=== PATIENT | female | born 1990 | race Caucasian/White ===

== ENCOUNTER 2017-11-25 04:43 | Emergency (ER) | payer OTHER ==
--- NOTE | 2017-11-25 05:19 | PD ---
HPI Chief Complaint Contractions Date Seen: Nov 25, 2017 Time Seen: 05:12 Travel History International Travel<30 Days: No Contact w/Intl Traveler<30Days: No Known Affected Area: No History of Present Illness HPI Patient is 27-year-old white female at 39 weeks goes to the [facility] pt c/o CTXs since 1 am [4 hrs ago] no bleeding or SROM , FHR reactive Weeks Gestation: 39 Para: 0 : 1 History Social History Alcohol Use: No Tobacco Use: No Substance Abuse: No Review of Systems General / Constitutional: No: Fever, Weight Gain, Chills, Other Eyes: No: Diploplia, Blurred Vision, Visual changes, Pain, Photophobia HENT: No: Headaches, Vertigo, Lightheadedness Cardiovascular: No: Irregular Rhythm, Chest Pain or Discomfort, Palpitations, Tachycardia, Syncope, Varicosities, Edema, Cyanosis Respiratory: No: Cough, Short of Breath, Other Gastrointestinal: Abdominal Pain, No: Nausea, Vomiting, Diarrhea Genitourinary: No: Decreased Urinary Output, Oliguria Musculoskeletal: No: Limited ROM, Weakness, Cramping, Edema, Pain Skin: No Rash, No Itching, No Dryness, No Lumps, No Change in Pigmentation, No Change in Nails, No Alopecia, No Lesions Neurologic: No: Weakness, Dizziness, Syncope, Focal Abnormalities, Coordination Problem, Headache, Slurred Speech, Seizures Psychiatric: No: Depression, Suicidal Ideations, Homicidal Ideation Endocrine: No: Heat Intolerance, Cold Intolerance, Polydipsia, Polyuria, Other Physical Exam Narrative GENERAL: Well-nourished, well-developed patient. SKIN: Warm and dry. HEAD: Normocephalic and atraumatic. EYES: No scleral icterus. No injection or drainage. ENT: No nasal drainage noted. Mucous membranes pink. Airway patent. NECK: Supple, trachea midline. No JVD. CARDIOVASCULAR: Regular rate and rhythm without murmurs, gallops, or rubs. RESPIRATORY: Breath sounds equal bilaterally. No accessory muscle use. BREASTS: Bilateral exam showed no masses , no retractions, no nipple discharge. ABDOMEN/GI: Abdomen soft, non-tender, bowel sounds present, no rebound, no guarding Gravid to [39-] weeks size Fundal Height: [-39] GENITOURINARY: External Genitalia: intact and normal in appearance BUS glands: [-] Cervix: [post-] Dilatation: [-2] Effacement: [-60] Station: [-3] Presentation: [vtx-] Membranes: [intact ] Uterine Contractions: [q 5 min-] FHT's: Category: [-1] Baseline: [-133] Reactive: [R-] Variability: [mod-] Decels: [none-] EXTREMITIES: No cyanosis or edema. BACK: Nontender without obvious deformity. No CVA tenderness. NEUROLOGICAL: Awake and alert. Motor and sensory grossly within normal limits. Five out of 5 muscle strength in all muscle groups. Normal speech. MDM Interpretation(s) Pt is a 27 y/o WF at39 wks C/o CTXs , cx 2/60/-3 FHR reactive , CTXs q 5 min Plan Plan to D/C home , return for increase labor pain, SROM ,or Bleeding Diagnosis Diagnosis: Primary Impression: Uterine contractions during Additional Impression: 39 weeks gestation of Disposition: DISCHARGE HOME Condition: Stable Ji Cedillo II, MD Nov 25, 2017 05:18
[2017-11-26] MEDS ORDERED: IBUP1TAB7 PO (17:13)
== END 2017-11-25 05:29 | disposition home or self-care (01) ==
LOC: HOBED 04:43
DX: O62.9 Abnormality of forces of labor, unspecified (principal); Z3A.39 39 weeks gestation of pregnancy
CPT/HCPCS: 59025

== ENCOUNTER 2017-11-25 18:43 | Inpatient (IN) | payer OTHER ==
[~2017-11-25] VITALS: Ht 154.9 cm; Wt 61.3 kg
[2017-11-25] VITALS (10 sets, daily range): BP systolic 132–142; BP diastolic 70–78; PULSE 72–80; RESP 18; TEMP 97.7–97.8; O2SAT 100
[2017-11-25] MEDS ORDERED: LACTATED RINGER'S 1000 ML INJ 1,000 ML IV SCH (19:14)
[2017-11-25] MEDS ORDERED: LACTATED RINGER'S 1000 ML INJ 1,000 ML IV PRN (19:14)
[2017-11-25] MEDS ORDERED: SODIUM CHLORID 0.9% 500 ML INJ 500 ML IV PRN (19:15)
[2017-11-25] MEDS ORDERED: LIDOCAINE HCL 1% 50 ML VIAL I-DERMAL PRN (19:15)
[2017-11-25] MEDS ORDERED: OXYTOCIN 30 UNITS-500ML PREMIX 500 ML IV ONE (19:15)
[2017-11-25] MEDS ORDERED: MINERAL OIL 10 ML VIAL TOPICAL PRN (19:15)
[2017-11-25] MEDS ORDERED: CITRIC ACID-SODIUM CITRATE LIQ 30 ML UDC PO SCH (19:15)
[2017-11-25] MEDS ORDERED: ONDANSETRON HCL 4 MG/2 ML VIAL IV PUSH PRN (19:15)
[2017-11-25] MEDS ORDERED: LIDOCAINE HCL 1% 50 ML VIAL INFIL PRN (19:15)
--- NOTE | 2017-11-25 19:23 | HHI.HP ---
History & Physical H&P HPI Chief Complaint contractions Date Seen: Nov 25, 2017 Time Seen: 19:16 Travel History International Travel<30 Days: No Contact w/Intl Traveler<30Days: No Known Affected Area: No History of Present Illness HPI pt. is a 27 y/o @ 39 4/7 weeks present w/ c/o ctxs. pt. states been having ctxs since early in am. was seen in [place] and d/c. pt. states since ctxs have increased in freq and intensity. +FM, no lof/vb. cervix at present 5cm/80/0/ant w/ bulging membranes. Weeks Gestation: 39 Para: 0 : 1 History (Limited) History Past Medical History Medical History: Denies Significant Hx Obstetric History Obstetric History Past Surgical History Surgical History: No Previous Surgery Family History Family History: Negative Social History Alcohol Use: No Tobacco Use: No Substance Abuse: No Allergies-Medications Allergies-Medications (Allergen,Severity, Reaction): Coded Allergies: prochlorperazine (Verified Allergy, Mild, Rash, 11/25/17) ROS Review of Systems Except as stated in HPI: all other systems reviewed are Neg Physical Exam Physical Exam Narrative GENERAL: Well-nourished, well-developed patient. SKIN: Warm and dry. HEAD: Normocephalic and atraumatic. EYES: No scleral icterus. No injection or drainage. ENT: No nasal drainage noted. Mucous membranes pink. Airway patent. NECK: Supple, trachea midline. No JVD. CARDIOVASCULAR: Regular rate and rhythm without murmurs, gallops, or rubs. RESPIRATORY: Breath sounds equal bilaterally. No accessory muscle use. BREASTS: Bilateral exam showed no masses , no retractions, no nipple discharge. ABDOMEN/GI: Abdomen soft, non-tender, bowel sounds present, no rebound, no guarding Gravid GENITOURINARY: External Genitalia: intact and normal in appearance Dilatation: 5 Effacement:80 Station: Membranes: bulging Uterine Contractions: q2-3 min FHT's: Category: 1 Reactive: + Variability: mod EXTREMITIES: No cyanosis or edema. BACK: Nontender without obvious deformity. No CVA tenderness. NEUROLOGICAL: Awake and alert. Motor and sensory grossly within normal limits. Five out of 5 muscle strength in all muscle groups. Normal speech. Data Data Data Vital Signs Reviewed: Yes Orders Orders Ob (2e) Additional Admit Info (11/25/17 19:05) Admit To Inpatient (11/25/17 ) Code Status (11/25/17 19:14) Vital Signs (Adult) .Per protocol (11/25/17 19:14) Activity Oob Ad Liliana (11/25/17 19:14) Heart (11/25/17 19:14) Amnioinfusion (11/25/17 19:14) Urinary Catheter Management .ONCE (11/25/17 19:14) Diet Liquid (11/26/17 Breakfast) Lactated Ringer's 1000 Ml Inj (Lr 1000 M (11/25/17 19:14) Lactated Ringer's 1000 Ml Inj (Lr 1000 M (11/25/17 19:14) Sodium Chlorid 0.9% 500 Ml Inj (Ns 500 M (11/25/17 19:15) Sodium Chlor 0.9% 1000 Ml Inj (Ns 1000 M (11/25/17 19:34) Lidocaine 1% Inj (50 Ml) (Xylocaine 1% I (11/25/17 19:15) Citric Acid-Sodium Citrate Liq (Bicitra (11/25/17 19:15) Ondansetron Inj (Zofran Inj) (11/25/17 19:15) Fentanyl Inj (Fentanyl Inj) (11/25/17 19:15) Fentanyl Inj (Fentanyl Inj) (11/25/17 19:15) Complete Blood Count With Diff (11/25/17 19:14) Hold Clot (11/25/17 19:14) Abo/Rh Blood Type (11/25/17 19:14) Urinalysis - C+S If Indicated (11/25/17 19:14) Drug Screen, Random Urine (11/25/17 19:14) Ob/Psych Drug Screen, Urine (11/25/17 19:14) Resp Oxygen Non Rebreathe Mask (11/25/17 ) ^ Epidural / Intrathecal Infus (11/25/17 19:14) Oxytocin 30 Units-500ml Premix (Pitocin (11/25/17 19:15) Lidocaine 1% Inj (50 Ml) (Xylocaine 1% I (11/25/17 19:15) Light Mineral Oil (Muri-Lube Oil) (11/25/17 19:15) Inpatient Certification (11/25/17 ) Specimen To Be Collected PRN (11/25/17 19:14) Specimen To Be Collected PRN (11/25/17 19:14) Group B Strep: Negative MDM MDM Medical Record Reviewed: Yes Plan pt. in active labor. fht reassuring. pt. to be admitted. pt. gbs -. fentanyl vs epidural. efm/toco. d/w dr. kennedy. Diagnosis Diagnosis: Primary Impression: Uterine contractions during Additional Impression: 39 weeks gestation of Jorge Landeros Jr., MD Nov 25, 2017 19:23
[2017-11-25] MEDS ORDERED: SODIUM CHLOR 0.9% 1000 ML INJ 1,000 ML IV PRN (19:34)
[2017-11-25 20:41] LABS: AUTOMATED NEUTROPHIL # 9.5 TH/MM3 (1.8-7.7); BASOPHIL # 0.1 TH/MM3 (0-0.2); BASOPHIL % 0.5 % (0.0-2.0); HEMATOCRIT 40.2 % (35.0-46.0); HEMOGLOBIN 13.8 GM/DL (11.6-15.3); LYMPH % 11.7 % (9.0-44.0); LYMPHOCYTE # 1.3 TH/MM3 (1.0-4.8); MEAN CELL VOLUME 89.2 FL (80.0-100.0); MEAN CORPUSCULAR HEMOGLOBIN 30.6 PG (27.0-34.0); MEAN CORPUSCULAR HGB CONC 34.3 % (32.0-36.0); MEAN PLATELET VOLUME 10.3 FL (7.0-11.0); MONO % 5.4 % (0.0-8.0); MONOCYTE # 0.6 TH/MM3 (0-0.9); NEUT % 82.4 % (16.0-70.0); PLATELET COUNT 145 TH/MM3 (150-450); RED BLOOD COUNT 4.51 MIL/MM3 (4.00-5.30); RED CELL DISTRIBUTION WIDTH 14.3 % (11.6-17.2); WHITE BLOOD COUNT 11.6 TH/MM3 (4.0-11.0)
[2017-11-25 20:47] LABS: BACTERIA, URINE RARE /hpf; BILIRUBIN, URINE NEG (NEG); BLOOD, URINE NEG (NEG); GLUCOSE,URINE NEG (NEG); KETONE, URINE 150 mg/dL (NEG); MUCUS URINE FEW /lpf (OCC); NITRITE,URINE NEG (NEG); PH, URINE 6.5 (5.0-8.5); SQUAMOUS EPITHELIAL CELL URINE 6 /hpf (0-5); URINE COLOR YELLOW (YELLW/STRAW); URINE LEUKOCYTE ESTERASE NEG (NEG)
[2017-11-26] VITALS (10 sets, daily range): BP systolic 105–131; BP diastolic 56–73; PULSE 69–131; RESP 16–18; TEMP 97.9–98.4; O2SAT 98
[2017-11-26] MEDS ORDERED: LIDOCAINE HCL 1% PF 30 ML VIAL ONE (00:10)
--- NOTE | 2017-11-26 01:33 | HHI.PR ---
Addendum to Inpatient Note Addendum Reason: Additional Documentation Additional Information Paged by nursing staff at approximately 1300 for patient's refusal of medications. Patient is currently in labor. The parents report they do not wish for a Hep B vaccination, erythromycin application and vitamin K administration. The risks and benefits were reviewed, including but not limited to risks of current or future infection, bleeding, blindness and possibly . They expressed understanding of the risks and benefits of refusing and still wish to refuse at this time. They state they may consider vitamin k upon delivery, however they are currently refusing. It was explained that if they do change their minds all of these are still encouraged and will still be available to them upon delivery. Refusal signed, witnessed by nurse in room. Phillip Damon MD R1 Nov 26, 2017 01:33
--- NOTE | 2017-11-26 04:08 | PD.OB.DELI ---
Weeks gestation: 39 Pt started active labor?: Yes Medical induction of labor?: No Artificial rupture of membrane: No Anesthesia: Lidocaine local to perineum Episiotomy: Midline Vaginal Delivery: Vacuum Presentation: Occiput anterior Nuchal Cord: None Delayed cord clamping (45 sec): Yes Infant: Male Delivery date: Nov 26, 2017 Delivery time: 03:29 One Minute : 6 Five Minute : 8 Weight: 7 lb 11 oz Placenta: Spontaneous delivery Laceration: Episiotomy, 2 deg Repair: Chromic running Estimated blood loss: 200ml Additional Information Terminal bradycardia with pushing efforts. Bradycardia for approx 5 min to 80's ; quick return to baseline followed by repeat bradycardia. Informed patient and of need for operative delivery and possible cd if unsuccessful. Peds and respiratory in room. OR team made aware of possible need for stat cd under general. Lidocaine on perineum for pain control, straight cath of bladder performed. 3+ station in OA position. Vacuum placed at median flexion point, with maternal pushing efforts through one push. Released after contraction. Episiotomy performed. Vacuum applied through another contraction with pop-off x1. Mother continued pushing efforts with that contraction and delivered. Anal sphincter muscles/capsule reinforced with interrupted 2-0 chromic. Multiplayer closure performed with 2-0 chromic. Good hemostasis noted. Counts correct. Family debriefed after delivery. Radha Singh MD Nov 26, 2017 04:08
[2017-11-26] MEDS ORDERED: OXYTOCIN 30 UNITS-500ML PREMIX 500 ML IV SCH (04:15)
[2017-11-26] MEDS ORDERED: ZOLPIDEM TARTRATE 5 MG TAB PO PRN (04:15)
[2017-11-26] MEDS ORDERED: SODIUM CHLORIDE 0.9% FLUSH 10 ML FLUSH IV FLUSH PRN (04:15)
[2017-11-26] MEDS ORDERED: ALUMINUM/MAGNESIUM/SIMETH 30 ML CUP PO PRN (04:15)
[2017-11-26] MEDS ORDERED: oxyCODONE/ACETAMINOPHEN 5 MG/325 MG TAB PO PRN (04:15)
[2017-11-26] MEDS ORDERED: ONDANSETRON ODT 4 MG TAB PO PRN (04:15)
[2017-11-26] MEDS ORDERED: ACETAMINOPHEN 325 MG TAB PO PRN (04:15)
[2017-11-26] MEDS ORDERED: WITCH HAZEL 50%/GLYCERIN 12.5% 40 PAD JAR TOPICAL PRN (04:15)
[2017-11-26] MEDS ORDERED: BENZOCAINE 20% TOPICAL SPRAY 60 ML CAN TOPICAL PRN (04:15)
[2017-11-26] MEDS: IBUPROFEN 800 MG TAB PO PRN ×3 (04:26→21:22)
[2017-11-26] MEDS ORDERED: SODIUM CHLORIDE 0.9% FLUSH 10 ML FLUSH IV FLUSH SCH (09:00)
[2017-11-26] MEDS ORDERED: DIPHTH/TETANUS/ACEL PERTUSSIS (BOOSTER) 0.5 ML VIAL/PFS IM ONE (16:00)
[2017-11-26] MEDS ORDERED: MEASLES, MUMPS, RUBELLA VACCINE 0.5 ML VIAL SQ ONE (16:00)
[2017-11-26] MEDS ORDERED: IBUP1TAB7 PO (17:13)
--- NOTE | 2017-11-26 17:14 | HHI.DCPOC ---
Discharge Care Plan Diagnosis: (1) Status post vacuum-assisted vaginal delivery Your Health Problems Are: Vaginal delivery Report Symptoms to Your Doctor -Temperature above 100.5 degrees -Redness, of incision or excessive or foul smelling drainage -Unusual pain or calf pain -Increased vaginal bleeding -Painful or difficulty urinating -Feelings of extreme sadness or anxiety after 2 weeks Goals to Promote Your Health * To prevent worsening of your condition and complications * To maintain your health at the optimal level Directions to Meet Your Goals Take your medications as prescribed Follow your dietary instruction Follow activity as directed Ensure plenty of rest for recovery Drink fluids for hydration Keep your appointments as scheduled Take your immunizations and boosters as scheduled If your symptoms worsen call your PCP, if no PCP go to Urgent Care Center or Emergency Room Smoking is Dangerous to Your Health. Avoid second hand smoke Call the 24-hour crisis hotline for domestic abuse at Radha Tierney MD Nov 26, 2017 17:14
[2017-11-27] MEDS: IBUPROFEN 800 MG TAB PO PRN ×3 (05:43→21:40)
[2017-11-27 08:00] VITALS: BP 111/76; PULSE 61; RESP 20; TEMP 97.8; O2SAT 97
[2017-11-27] MEDS: DOCUSATE SODIUM 50 MG/SENNA 8.6 MG TAB PO PRN ×2 (09:21→21:40)
--- NOTE | 2017-11-27 11:27 | HHI.OB ---
Subjective Post Day: 1 Remarks doing well no complaints desire circumcision Objective Vitals/I&O Vital Signs Date Time Temp Pulse Resp B/P (MAP) Pulse Ox O2 Delivery O2 Flow Rate FiO2 11/27/17 08:00 97.8 61 20 111/76 (88) 97 11/26/17 20:02 98.2 87 18 114/73 (87) Objective Remarks GENERAL: Well-nourished, well-developed patient. CARDIOVASCULAR: Regular rate and rhythm without murmurs, gallops, or rubs. RESPIRATORY: Breath sounds equal bilaterally. No accessory muscle use. ABDOMEN/GI: Abdomen soft, non-tender. Fundus: Firm, non-tender at umbilicus. GENITOURINARY: Light to moderate bleeding. EXTREMITIES: No cyanosis or edema, non-tender, without signs of DVT. Medications and IVs Current Medications Medications (Trade) Dose Ordered Sig/Zulma Route Start Time Stop Time Status Last Admin (NS Flush) 2 ml BID IV FLUSH 11/26/17 09:00 (NS Flush) 2 ml UNSCH PRN IV FLUSH 11/26/17 04:15 (Tylenol) 650 mg Q4H PRN PO 11/26/17 04:15 11/26/17 14:57 (Motrin) 800 mg Q8H PRN PO 11/26/17 04:15 11/27/17 05:43 (Percocet 5-325 Mg) 1 tab Q4H PRN PO 11/26/17 04:15 (Americaine 20% Top Spr) 1 spray Q4H PRN TOPICAL 11/26/17 04:15 11/26/17 10:05 (Tucks Pads) 1 applic QID PRN TOPICAL 11/26/17 04:15 11/26/17 10:05 (Fina-Colace) 2 tab Q12H PRN PO 11/26/17 04:15 11/27/17 09:21 (Ambien) 5 mg HS PRN PO 11/26/17 04:15 (Mag-Al Plus Susp Liq) 15 ml Q8H PRN PO 11/26/17 04:15 (Zofran Odt) 4 mg Q6H PRN PO 11/26/17 04:15 Assessment/Plan Assessment and Plan doing well PPD 1 will get circumcision today or tomorrow Breanna Sandoval MD Nov 27, 2017 11:27
[2017-11-27 20:00] VITALS: BP 114/73; PULSE 86; RESP 18; TEMP 98.3; O2SAT 97
[2017-11-28] MEDS: IBUPROFEN 800 MG TAB PO PRN ×2 (06:07→15:09)
[2017-11-28 08:00] VITALS: BP_SYST 108; BP_SYST 112; BP_DIAS 69; BP_DIAS 70; PULSE 75; PULSE 91; RESP 18; RESP 20; TEMP 98.1; TEMP 98.2; O2SAT 98
--- NOTE | 2017-11-28 08:12 | HHI.OB ---
Subjective Post Day: 2 Remarks Doing well, meeting milestones, discharge home today, vaginal bleeding less than menses, pain controlled. Objective Vitals/I&O Vital Signs Date Time Temp Pulse Resp B/P (MAP) Pulse Ox O2 Delivery O2 Flow Rate FiO2 11/27/17 20:00 98.3 86 18 114/73 (87) 97 Objective Remarks GENERAL: Well-nourished, well-developed patient. CARDIOVASCULAR: Regular rate and rhythm without murmurs, gallops, or rubs. RESPIRATORY: Breath sounds equal bilaterally. No accessory muscle use. ABDOMEN/GI: Abdomen soft, non-tender. Fundus: Firm, non-tender at umbilicus. GENITOURINARY: Light to moderate bleeding. EXTREMITIES: No cyanosis or edema, non-tender, without signs of DVT. Medications and IVs Current Medications Medications (Trade) Dose Ordered Sig/Zulma Route Start Time Stop Time Status Last Admin (NS Flush) 2 ml BID IV FLUSH 11/26/17 09:00 (NS Flush) 2 ml UNSCH PRN IV FLUSH 11/26/17 04:15 (Tylenol) 650 mg Q4H PRN PO 11/26/17 04:15 11/26/17 14:57 (Motrin) 800 mg Q8H PRN PO 11/26/17 04:15 11/28/17 06:07 (Percocet 5-325 Mg) 1 tab Q4H PRN PO 11/26/17 04:15 (Americaine 20% Top Spr) 1 spray Q4H PRN TOPICAL 11/26/17 04:15 11/26/17 10:05 (Tucks Pads) 1 applic QID PRN TOPICAL 11/26/17 04:15 11/26/17 10:05 (Fina-Colace) 2 tab Q12H PRN PO 11/26/17 04:15 11/27/17 21:40 (Ambien) 5 mg HS PRN PO 11/26/17 04:15 (Mag-Al Plus Susp Liq) 15 ml Q8H PRN PO 11/26/17 04:15 (Zofran Odt) 4 mg Q6H PRN PO 11/26/17 04:15 Assessment/Plan Assessment and Plan 27-year-old status post VA at 39 weeks. 1. PPD #2: Minimal sounds, discharge home today, discussed expectations, precautions and follow-up. -Male, status post circumcision yesterday. 2. Thrombocytopenia: Mild, likely gestational, no baseline for comparison today. Her OB may repeat CBC at 6 weeks Sravan Barron MD Nov 28, 2017 08:12
== END 2017-11-28 15:28 | disposition home or self-care (01) | DRG 775 ==
LOC: HOBED 18:43 → H2EB 19:06 → H1EA 11-26 05:21
PROVIDERS: ADMIT Obstetrics & Gynecology; ATTEND Obstetrics & Gynecology
PROC: 10D07Z6 Extraction of Products of Conception, Vacuum, Via Natural or Artificial Opening (ICD-10-PCS; principal; 2017-11-26)
PROC: 0W8NXZZ Division of Female Perineum, External Approach (ICD-10-PCS; 2017-11-26)
PROC: 10E0XZZ Delivery of Products of Conception, External Approach (ICD-10-PCS; 2017-11-26)
DX: O99.12 Other diseases of the blood and blood-forming organs and certain disorders involving the immune mechanism complicating childbirth (principal); D69.6 Thrombocytopenia, unspecified; O76 Abnormality in fetal heart rate and rhythm complicating labor and delivery; O66.5 Attempted application of vacuum extractor and forceps; Z37.0 Single live birth; Z3A.39 39 weeks gestation of pregnancy; O62.9 Abnormality of forces of labor, unspecified
CPT/HCPCS: 59020; 59025; 80307; 81001; 85025; 85461; 86850; 86900; 86901; 90384; 90715; G0481; J2590; J2790; J7120